=== PATIENT | female | born 1935 | race Caucasian/White ===

== ENCOUNTER 2017-07-09 11:17 | Day surgery (SDC) | payer MEDICARE, OTHER ==
[2017-07-09] MEDS ORDERED: FENTAnyl 50 MCG/ML VIAL (13:16)
[2017-07-09] MEDS: BUPIVACAINE 0.5% (SDV) 30 ML INJ (13:38)
[2017-07-09] MEDS ORDERED: SUCCINYLCHOLINE CHLORIDE 100 MG/5 ML SYG IV (13:53)
[2017-07-09] MEDS ORDERED: SUGAMMADEX SODIUM 200 MG/2 ML VIAL IV (13:53)
[2017-07-09] MEDS ORDERED: ROCURONIUM 50 MG INJ (13:53)
[2017-07-09] MEDS ORDERED: PROPOFOL 20 ML (13:53)
[2017-07-09] MEDS ORDERED: LIDOCAINE 100 MG SYRINGE (13:53)
[2017-07-09] MEDS ORDERED: BACITRACIN 0.9 GM OINT (13:54)
[2017-07-09] MEDS ORDERED: CEFAZOLIN 1 GM INJ (13:54)
[2017-07-09] MEDS ORDERED: PROVENTIL HFA 6.7GM INHALER (13:56)
[2017-07-09] MEDS: POLYMYXIN/BACITRACIN 1L IRRIG (14:21)
[2017-07-09] MEDS ORDERED: HYDROCODONE/APAP (5/325) TAB PO (15:00)
[2017-07-09] MEDS ORDERED: ONDANSETRON 4 MG INJ (15:26)
== END 2017-07-09 16:49 | disposition home or self-care (01) ==
LOC: SDS 11:17
DX: M20.42 Other hammer toe(s) (acquired), left foot (principal); I10 Essential (primary) hypertension; E78.5 Hyperlipidemia, unspecified; J45.909 Unspecified asthma, uncomplicated
CPT/HCPCS: 28285; 82962